=== PATIENT | male | born 1990 | race Caucasian/White ===

== ENCOUNTER 2021-05-09 11:02 | Emergency (ER) | payer OTHER ==
[~2021-05-09] VITALS: Ht 177.8 cm; Wt 90.7 kg
== END 2021-05-09 12:18 | disposition home or self-care (01) ==
LOC: ED 11:02
DX: S93.402A Sprain of unspecified ligament of left ankle, initial encounter (principal); Z88.5 Allergy status to narcotic agent; X58.XXXA Exposure to other specified factors, initial encounter; Y93.67 Activity, basketball
CPT/HCPCS: 73610; 99283-25

== ENCOUNTER 2021-07-13 22:09 | Emergency (ER) | payer OTHER ==
[~2021-07-13] VITALS: Ht 177.8 cm; Wt 90.7 kg
[2021-07-14] MEDS ORDERED: IBU800 MG PO (05:28)
[2021-07-14] MEDS ORDERED: ACETAMINOPHEN500 M1 PO (05:28)
== END 2021-07-14 06:20 | disposition home or self-care (01) ==
LOC: ED 22:09
DX: S09.11XA Strain of muscle and tendon of head, initial encounter (principal); Z88.5 Allergy status to narcotic agent; W21.05XA Struck by basketball, initial encounter
CPT/HCPCS: 70486; 96372; 99283-25; J1885